=== PATIENT | female | born 1990 | race Caucasian/White ===

== ENCOUNTER 2016-10-10 03:20 | Inpatient (IN) | payer OTHER ==
[2016-10-10] MEDS ORDERED: BUTORPHANOL TARTRATE 1 MG/ML VIAL IVPUSH PRN (04:41)
[2016-10-10] MEDS ORDERED: DEXTROSE 5%-LACTATED RINGERS 1,000 ML IV SCH ×2 (04:45→22:30)
--- NOTE | 2016-10-10 04:45 | PN ---
Progress Note (short form) - Note Progress Note: cx 2 cm 80 vx -3 mi, fhr cat 1, contraction 2 min
[2016-10-10 05:15] VITALS: BMI 30.9
[2016-10-10 05:16] LABS: BASOPHIL 0.1 % (0-2.0); EOSINOPHIL 1.3 % (0-4.5); MCH 24.8 pg (25.7-33.7); MEAN CELL VOLUME 77.6 fl (80-96); MEAN PLT VOLUME 9.4 fl (7.5-11.1); NEUTROPHILS 74.3 % (42.8-82.8); PLATELET COUNT 218 K/MM3 (134-434); WHITE BLOOD COUNT 12.8 K/mm3 (4.0-10.0)
[2016-10-10 05:27] LABS: INR 0.88 (0.82-1.09); PROTHROMBIN TIME (PATIENT) 9.6 SEC (9.98-11.88)
[2016-10-10 05:30] LABS: ACTIVATED PTT 26.4 SECONDS (26.9-34.4)
[2016-10-10 05:34] LABS: CALCIUM 8.4 mg/dL (8.5-10.1); COCKROFT - GAULT 201.875; CREATININE 0.6 mg/dL (0.55-1.02)
[2016-10-10 06:46] LABS: HIV 1 & 2 AB NEGATIVE; HIV 1 AGp24 NEGATIVE
[2016-10-10] MEDS: ELECTROLYTE-148 SOLN 1,000 ML IV SCH ×2 (07:00→12:00)
[2016-10-10] MEDS ORDERED: FENTANYL/BUPIVACAINE/NS/PF - PCEA - 50 ML DISP.SYRIN EP SCH (07:30)
[2016-10-10] MEDS ORDERED: TUBERCULIN PPD 5 TU/0.1ML SYRINGE (IN PATIENT USE ONLY) ID ONE (09:00)
[2016-10-10] MEDS: PRENATAL VITAMINS W/ FOLIC ACID TABLET (FP) PO SCH (10:03)
--- NOTE | 2016-10-10 10:20 | HP ---
Past Medical History - Primary Care Physician PCP:: Joao Soto - Admission Chief Complaint: prregnancy 41.1 weeks, labor History of Present Illness: 26 yo f g 4 [id number] edc by sono 09/30/16, care at [facility]. c/o contraction, cx 2 cm, 80 vx -3 mi, fhr cat 1, contraction q 2 min History Source: Patient Limitations to Obtaining History: No Limitations - Past Medical History ...: 1 ...Para: 0 ...Term: 0 ...: 0 ...Spon : 0 ...Induced : 0 ...Multiple Gestation: 0 ...LMP: 12/25/15 ... Weeks Gestation by Dates: 41.3 ...EDC by Dates: 09/30/16 ...EDC by Sono: 09/30/16 - Past Surgical History Past Surgical History: Yes: Appendectomy Hx Myomectomy: No Hx Transabdominal Cerclage: No - Smoking History Smoking history: Never smoked Have you smoked in the past 12 months: No - Alcohol/Substance Use Hx Alcohol Use: No History of Substance Use: reports: None - Social History Usual Living Arrangement: Yes: With Spouse History of Recent Travel: No Home Medications - Allergies Allergies/Adverse Reactions: Allergies Allergy/AdvReac Type Severity Reaction Status Date / Time No Known Allergies Allergy Verified 10/10/16 05:17 - Home Medications Home Medications: Ambulatory Orders Pnv with Ca,No.72/Iron/FA [ Plus Tablet] 1 tab PO DAILY 10/04/16 Review of Systems - Review of Systems Constitutional: reports: No Symptoms Eyes: reports: No Symptoms HENT: reports: No Symptoms Neck: reports: No Symptoms Cardiovascular: reports: No Symptoms Respiratory: reports: No Symptoms Gastrointestinal: reports: No Symptoms Genitourinary: reports: No Symptoms Breasts: reports: No Symptoms Reported Musculoskeletal: reports: No Symptoms Integumentary: reports: No Symptoms Neurological: reports: No Symptoms Endocrine: reports: No Symptoms Hematology/Lymphatic: reports: No Symptoms Psychiatric: reports: No Symptoms Physical Exam - Maternity Vital Signs: Vital Signs Temperature 97.8 F 10/10/16 06:00 Pulse Rate 89 10/10/16 09:50 Respiratory Rate 10/10/16 09:50 Blood Pressure 111/60 10/10/16 09:50 O2 Sat by Pulse Oximetry (%) 100 10/10/16 09:50 Constitutional: Yes: Well Nourished, No Distress, Calm Eyes: Yes: WNL, Conjunctiva Clear, EOM Intact HENT: Yes: WNL, Atraumatic, Normocephalic Neck: Yes: WNL, Supple, Trachea Midline Cardiovascular: Yes: WNL, Regular Rate and Rhythm Breast(s): Yes: WNL - Abdominal Exam/OB Fundal Height: 40 Number of Fetuses: Single Presentation: Vertex Contractions: Yes Regularity: Regular Intensity: Mod/Strong Monitor Mode: External Heart Rate Location: [facility] Category: I Accelerations: Uniform Decelerations: None - Vaginal Exam/OB Vaginal Bleediing: No Speculum Exam: No Dilatation (cm): 2 cm Effacement (%): 80 Amniotic Membrane Status: Intact Presentation: Vertex/Position Station: -3 - Physical Exam Musculoskeletal: Yes: WNL Edema: Yes Edema: LLE: 1+, RLE: 1+ Deep Tendon Reflex Grade: Normal +2 - Labs Lab Results: CBC, BMP 10/10/16 04:50 10/10/16 04:50 Hemorrhage Risk Assessment - Risk Factors Risk Score: 0 Risk Level: Low Risk Problem List - Problems (1) with 41 completed weeks gestation Code(s): Z3A.41 - 41 WEEKS GESTATION OF (2) Labor established Code(s): RDO5961 - Assessment/Plan admit heart monitoring, LGA baby, c/s rba discussed , wants trial of vaginal delivery, shoulder dystocia discussed
[2016-10-10] MEDS: ONDANSETRON 4 MG/2 ML VIAL IVPB ONE (14:15)
--- NOTE | 2016-10-10 21:33 | PN ---
Progress Note (short form) - Note Progress Note: cx full 100 vx -2 arom, mec af , fhr cat 1 contraction q2 min , if no descent after ROM advised c/s Problem List - Problems (1) with 41 completed weeks gestation Code(s): Z3A.41 - 41 WEEKS GESTATION OF (2) Labor established Code(s): KYQ6486 -
--- NOTE | 2016-10-10 22:13 | PN ---
Progress Note (short form) - Note Progress Note: cx full vx op, -2 no descent with pushing , advised c/sfor contracted pelvis, LGA baby Problem List - Problems (1) with 41 completed weeks gestation Code(s): Z3A.41 - 41 WEEKS GESTATION OF (2) Labor established Code(s): VWW6562 -
[2016-10-10] MEDS ORDERED: CITRIC ACID/SODIUM CITRATE 30 ML UNIT-DOSE CUP PO ONE (22:16)
[2016-10-10] MEDS ORDERED: BENZOCAINE 28 GM HEMORRHOIDAL OINTMENT PR PRN (22:17)
[2016-10-10] MEDS ORDERED: IBUPROFEN 800 MG/8 ML IJ IVPB PRN (22:17)
[2016-10-10] MEDS ORDERED: BENZOCAINE 20% 57 GM BOTTLE TP PRN (22:17)
[2016-10-10] MEDS ORDERED: WITCH HAZEL 50% (TUCKS) 40 PAD/JAR PAD TP PRN (22:17)
[2016-10-10] MEDS ORDERED: diphenhydrAMINE HCL 25 MG CAPSULE (FP) PO PRN (22:17)
[2016-10-10] MEDS ORDERED: METHYLERGONOVINE MALEATE 0.2 MG/1 ML AMP IM PRN (22:17)
[2016-10-10] MEDS ORDERED: OXYTOCIN 20 UNITS in 0.9% NS 1,000 ML IV SCH (22:30)
[2016-10-10 23:26] LABS: ARTERIAL BLD GAS O2 SATURATION 8.9 % (90-98.9); ARTERIAL BLOOD GAS BASE EXCESS -2.1 meq/l (-2-2); ARTERIAL BLOOD GAS pH 7.32 (7.35-7.45)
[2016-10-10 23:29] LABS: VENOUS BLOOD GAS HCO3 23.8 meq/L (19-25); VENOUS PH 7.38 (7.32-7.42)
[2016-10-10 23:30] LABS: LPM/O2% 21%; PT. ON O2? NO; TYPE OF O2 ROOM AIR
[2016-10-10 23:31] LABS: ARTERIAL BLOOD GAS PO2 10.4 mmHg (80-100)
[2016-10-10] MEDS ORDERED: ONDANSETRON 4 MG/2 ML VIAL IVPB PRN (23:56)
[2016-10-11] MEDS ORDERED: CEFAZOLIN 1 GM/D5W 50 ML IVPB SCH (02:00)
[2016-10-11] MEDS ORDERED: CEFAZOLIN (PRE-DOCKED) 50 ML IVPB ONE ×2 (05:13→12:50)
[2016-10-11] MEDS: CEFAZOLIN 1 GM/D5W 50 ML IVPB SCH ×2 (05:17→13:04)
[2016-10-11 07:57] LABS: BASOPHIL 0.1 % (0-2.0); EOSINOPHIL 0.2 % (0-4.5); MCH 25.2 pg (25.7-33.7); MCHC 32.2 g/dl (32.0-36.0); MEAN CELL VOLUME 78.1 fl (80-96); MEAN PLT VOLUME 8.8 fl (7.5-11.1); NEUTROPHILS 83.4 % (42.8-82.8); PLATELET COUNT 168 K/MM3 (134-434); RDW 16.8 % (11.6-15.6)
--- NOTE | 2016-10-11 08:14 | PN ---
Progress Note (short form) - Note Progress Note: pod 1 doing well, no c/o CBC, BMP 10/10/16 04:50 abdomen soft, no distension, no cva , incision dry no excess vaginal bleeding plan d/c Belcher, ambulate pain management Problem List - Problems (1) with 41 completed weeks gestation Code(s): Z3A.41 - 41 WEEKS GESTATION OF (2) Labor established Code(s): FJS9853 -
[2016-10-11] MEDS: PRENATAL VITAMINS W/ FOLIC ACID TABLET (FP) PO SCH (09:40)
[2016-10-11] MEDS ORDERED: ONDANSETRON 4 MG/2 ML VIAL IVPB PRN (14:54)
[2016-10-11] MEDS: ONDANSETRON 4 MG/2 ML VIAL IVPB ONE (14:58)
[2016-10-11] MEDS: IBUPROFEN 600 MG TABLET (FP) PO PRN (21:01)
[2016-10-11] MEDS: SIMETHICONE 80 MG TAB.CHEW (FP) PO PRN (21:01)
[2016-10-11] MEDS: ACETAMINOPHEN 325 MG TABLET (FP) PO PRN (21:04)
[2016-10-11] MEDS ORDERED: BISACODYL 10 MG SUPP.RECT RC PRN (22:17)
--- NOTE | 2016-10-12 05:40 | PN ---
Post Progress Note - Subjective Subjective: 26 yo Para 1, status post primary , seen and evaluated. She c/o mild incision pain. Type of Delivery: Primary C/S Vital Signs: Vital Signs Temperature 98.4 F 10/11/16 21:19 Pulse Rate 98 H 10/11/16 21:19 Respiratory Rate 18 10/11/16 22:00 Blood Pressure 121/76 10/11/16 21:19 O2 Sat by Pulse Oximetry (%) 100 10/11/16 00:30 Breast Exam: Yes: Soft Uterus: Yes: Fundus Firm Incision: Yes: Dressing dry and intact Abdomen/GI: Yes: Abdomen soft, Tolerating PO Lochia: Yes: Rubra Lochia, amount: Small Extremities: Yes: Calves non-tender Perineum: Yes: Intact Activity: Ambulating - Labs Labs: CBC WBC 18.0 K/mm3 (4.0-10.0) H D 10/11/16 07:00 RBC 3.11 M/mm3 (3.60-5.2) L D 10/11/16 07:00 Hgb 7.8 GM/dL (10.7-15.3) L D 10/11/16 07:00 Hct 24.3 % (32.4-45.2) L D 10/11/16 07:00 MCV 78.1 fl (80-96) L 10/11/16 07:00 MCHC 32.2 g/dl (32.0-36.0) 10/11/16 07:00 RDW 16.8 % (11.6-15.6) H 10/11/16 07:00 Plt Count 168 K/MM3 (134-434) D 10/11/16 07:00 MPV 8.8 fl (7.5-11.1) 10/11/16 07:00 Neutrophils % 83.4 % (42.8-82.8) H 10/11/16 07:00 Lymphocytes % 9.7 % (8-40) D 10/11/16 07:00 Monocytes % 6.6 % (3.8-10.2) 10/11/16 07:00 Eosinophils % 0.2 % (0-4.5) D 10/11/16 07:00 Basophils % 0.1 % (0-2.0) 10/11/16 07:00 Problem List - Problems (1) Status post primary low transverse section Code(s): Z98.891 - HISTORY OF UTERINE SCAR FROM PREVIOUS SURGERY Assessment/Plan Status post Stable Continue Post op care
[2016-10-12] MEDS: IBUPROFEN 600 MG TABLET (FP) PO PRN (07:53)
[2016-10-12] MEDS: SIMETHICONE 80 MG TAB.CHEW (FP) PO PRN ×3 (07:53→20:24)
[2016-10-12] MEDS: ACETAMINOPHEN 325 MG TABLET (FP) PO PRN ×3 (07:53→20:24)
[2016-10-12] MEDS ORDERED: DIPHTH,PERTUSS(ACELL),TET 0.5 ML DISP.SYRIN IM ONE ×2 (10:00→13:45)
[2016-10-12] MEDS: PRENATAL VITAMINS W/ FOLIC ACID TABLET (FP) PO SCH (10:44)
[2016-10-12] MEDS: oxyCODONE HCL 5 MG TABLET PO PRN ×2 (15:11→20:26)
[2016-10-12] MEDS: SENNOSIDES/DOCUSATE COMBO (SENNA PLUS) TABLET (UD) PO PRN (22:02)
[2016-10-13] MEDS: ACETAMINOPHEN 325 MG TABLET (FP) PO PRN ×3 (05:02→17:21)
[2016-10-13] MEDS: SIMETHICONE 80 MG TAB.CHEW (FP) PO PRN ×3 (05:02→17:21)
[2016-10-13] MEDS: oxyCODONE HCL 5 MG TABLET PO PRN (05:03)
[2016-10-13 07:46] LABS: BASOPHIL 0.1 % (0-2.0); EOSINOPHIL 2.1 % (0-4.5); MCH 25.1 pg (25.7-33.7); MCHC 32.5 g/dl (32.0-36.0); MEAN CELL VOLUME 77.4 fl (80-96); MEAN PLT VOLUME 8.3 fl (7.5-11.1); NEUTROPHILS 79.9 % (42.8-82.8); PLATELET COUNT 197 K/MM3 (134-434); RDW 17.1 % (11.6-15.6); WHITE BLOOD COUNT 12.6 K/mm3 (4.0-10.0)
--- NOTE | 2016-10-13 08:36 | PN ---
Post Progress Note - Subjective Subjective: c/o dizziness no c/o pain Post Day: 3 Type of Delivery: Primary C/S Vital Signs: Vital Signs Temperature 98 F 10/13/16 07:32 Pulse Rate 91 H 10/13/16 07:32 Respiratory Rate 18 10/13/16 07:32 Blood Pressure 123/69 10/13/16 07:32 O2 Sat by Pulse Oximetry (%) 100 10/11/16 00:30 Breast Exam: Yes: Soft. No: Engorged Uterus: Yes: Fundus Firm, Fundus below umbilicus Incision: Yes: Makeda intact. No: Redness, Oozing Abdomen/GI: Yes: Abdomen soft, Passing flatus, Tolerating PO (diet ). No: Abdominal Distention, Tender Lochia: Yes: Rubra Lochia, amount: Moderate Extremities: Yes: Calves non-tender, Edema (2+/2+) Perineum: Yes: Intact Activity: Ambulating - Labs Labs: CBC WBC 12.6 K/mm3 (4.0-10.0) H 10/13/16 06:10 RBC 3.12 M/mm3 (3.60-5.2) L 10/13/16 06:10 Hgb 7.8 GM/dL (10.7-15.3) L 10/13/16 06:10 Hct 24.1 % (32.4-45.2) L 10/13/16 06:10 MCV 77.4 fl (80-96) L 10/13/16 06:10 MCHC 32.5 g/dl (32.0-36.0) 10/13/16 06:10 RDW 17.1 % (11.6-15.6) H 10/13/16 06:10 Plt Count 197 K/MM3 (134-434) 10/13/16 06:10 MPV 8.3 fl (7.5-11.1) 10/13/16 06:10 Neutrophils % 79.9 % (42.8-82.8) 10/13/16 06:10 Lymphocytes % 11.2 % (8-40) 10/13/16 06:10 Monocytes % 6.7 % (3.8-10.2) 10/13/16 06:10 Eosinophils % 2.1 % (0-4.5) D 10/13/16 06:10 Basophils % 0.1 % (0-2.0) 10/13/16 06:10 Assessment/Plan severe anemia, stable since preop cbc Plan discuss with Dr Soto if blood transfusion is to be offered pt was told r/b/a ,of transfusion . dr Soto discussed with patient, he decided there is no need to transfuse, on the basis of stable Hgb/hct
[2016-10-13] MEDS: FERROUS SO4 325 MG TABLET (FP) PO SCH ×2 (10:21→21:59)
[2016-10-13] MEDS: PRENATAL VITAMINS W/ FOLIC ACID TABLET (FP) PO SCH (10:21)
[2016-10-13] MEDS: IBUPROFEN 600 MG TABLET (FP) PO PRN ×2 (12:52→17:22)
[2016-10-13] MEDS: SENNOSIDES/DOCUSATE COMBO (SENNA PLUS) TABLET (UD) PO PRN (21:59)
--- NOTE | 2016-10-14 07:31 | PN ---
Post Progress Note Type of Delivery: Primary C/S Vital Signs: Vital Signs Temperature 98.0 F 10/13/16 20:58 Pulse Rate 84 10/13/16 20:58 Respiratory Rate 20 10/13/16 20:58 Blood Pressure 129/77 10/13/16 20:58 O2 Sat by Pulse Oximetry (%) 100 10/11/16 00:30 Breast Exam: Yes: Soft Uterus: Yes: Fundus Firm Incision: Yes: Makeda intact Abdomen/GI: Yes: Abdomen soft Lochia: Yes: Rubra Lochia, amount: Small Extremities: Yes: Calves non-tender Perineum: Yes: Intact Activity: Ambulating - Labs Labs: CBC WBC 12.6 K/mm3 (4.0-10.0) H 10/13/16 06:10 RBC 3.12 M/mm3 (3.60-5.2) L 10/13/16 06:10 Hgb 7.8 GM/dL (10.7-15.3) L 10/13/16 06:10 Hct 24.1 % (32.4-45.2) L 10/13/16 06:10 MCV 77.4 fl (80-96) L 10/13/16 06:10 MCHC 32.5 g/dl (32.0-36.0) 10/13/16 06:10 RDW 17.1 % (11.6-15.6) H 10/13/16 06:10 Plt Count 197 K/MM3 (134-434) 10/13/16 06:10 MPV 8.3 fl (7.5-11.1) 10/13/16 06:10 Neutrophils % 79.9 % (42.8-82.8) 10/13/16 06:10 Lymphocytes % 11.2 % (8-40) 10/13/16 06:10 Monocytes % 6.7 % (3.8-10.2) 10/13/16 06:10 Eosinophils % 2.1 % (0-4.5) D 10/13/16 06:10 Basophils % 0.1 % (0-2.0) 10/13/16 06:10 Assessment/Plan doing well h/h stable no dizziness no bleeding reg diet
[2016-10-14 08:30] VITALS: BP 109/85; PULSE 94; TEMP 98.3
[2016-10-14] MEDS: FERROUS SO4 325 MG TABLET (FP) PO SCH (10:47)
[2016-10-14] MEDS: PRENATAL VITAMINS W/ FOLIC ACID TABLET (FP) PO SCH (10:47)
[2016-10-14] MEDS: SIMETHICONE 80 MG TAB.CHEW (FP) PO PRN (10:50)
[2016-10-14] MEDS: ACETAMINOPHEN 325 MG TABLET (FP) PO PRN (10:50)
[2016-10-14] MEDS: IBUPROFEN 600 MG TABLET (FP) PO PRN (10:51)
[2016-10-14] MEDS ORDERED: oxyCODONE HCL 5 MG TABLET ONE (10:55)
[2016-10-14] MEDS: oxyCODONE HCL 5 MG TABLET PO PRN (10:55)
--- NOTE | 2016-10-15 14:45 | PATH ---
Surgical Pathology Report Patient Name: DEANDRA MINOR Med. Rec. 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 Specimen(s) Received PLACENTA Clinical History , 41.3 weeks gestation, LGA Primary c/section Final Diagnosis PLACENTA, DELIVERY: FOCALLY DISRUPTED THIRD TRIMESTER PLACENTA WITH MILD INCREASE IN PREVILLOUS, PERIVILLOUS, AND PRECHORIONIC FIBRIN DEPOSITION, THREE VESSEL UMBILICAL CORD, AND PLACENTAL MEMBRANES WITH MECONIUM HISTIOCYTOSIS AND FOCAL AMNION HYPERPLASIA. Electronically Signed Ruddy Juarez M.D. Gross Description The specimen is received fresh, labeled "placenta" and is a 566 gram, 19.5 x 17.5 x 2.4 cm placenta with attached membranes and umbilical cord. The attached membranes are flores-green, meconium stained, translucent with focal opacities and insert marginally. The umbilical cord measures 24 cm in length and averages 1.1 cm in diameter. The cord inserts eccentrically, 2 cm to the nearest margin. No true knots or strictures are identified. Cut surface of the umbilical cord reveals 3 vessels. The surface is white-green, meconium stained with fibrin deposition and appropriate caliber vessels. The maternal surface is red-brown with focal defects. Sectioning reveals red-brown, spongy parenchyma. No focal lesions are identified. Program Strategist sections are submitted in three cassettes as follows: 1- membrane rolls and umbilical cord; 2-3- full thickness sections of placenta. 10/14/[address] [facility]
--- NOTE | 2016-10-21 15:16 | DS ---
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 Vital Signs: Vital Signs Temperature 98.3 F 10/14/16 08:27 Pulse Rate 94 H 10/14/16 08:27 Respiratory Rate 20 10/14/16 08:27 Blood Pressure 109/85 10/14/16 08:27 O2 Sat by Pulse Oximetry (%) 100 10/11/16 00:30 Constitutional: Yes: Well Nourished, No Distress, Calm Eyes: Yes: WNL, Conjunctiva Clear, EOM Intact HENT: Yes: WNL, Atraumatic, Normocephalic Neck: Yes: WNL, Supple, Trachea Midline Cardiovascular: Yes: WNL, Regular Rate and Rhythm Respiratory: Yes: WNL, Regular, CTA Bilaterally Gastrointestinal: Yes: WNL ...Rectal Exam: Yes: WNL Renal/: Yes: WNL ....Post : Yes: Uterus firm, Uterus non-tender, Slight lochia rubra Breast(s): Yes: WNL Musculoskeletal: Yes: WNL Extremities: Yes: WNL Edema: LLE: Trace, RLE: Trace Integumentary: Yes: WNL Wound/Incision: Yes: Clean/Dry, Well Approximated, Makeda Intact Neurological: Yes: WNL, Alert, Oriented ...Motor Strength: WNL Psychiatric: Yes: WNL, Alert, Oriented Labs: CBC, BMP 10/13/16 06:10 10/10/16 04:50 Delivery - Delivery Section: Primary (no complication), Low Flap Transverse Type of Anesthesia: Epidural Episiotomy/Laceration: None EBL (cc): 700 Delivery, Single - Stages of Labor Date 1st Stage Initiatied: 10/10/16 Time 1st Stage Initiated: 00:00 Date 2nd Stage Initiated: 10/10/16 Time 2nd Stage Initiated: 21:18 Date of Delivery: 10/10/16 Time of Delivery: 23:00 Time Placenta Delivered: 23:01 Placenta: Yes: Expressed - Condition of Infant Density Control Puncher/Telecom Billing Analyst Present: No Infant Gender: Male Weight: 9 lb Position: OP Total Hours ROM (Hrs/Mins): 2HRS- 47 MINS - 1 Minute Total Score: 9 5 Minutes Total Score: 9 - [place] Feeding Plan Initial Plan: Exclusive throughout hospitalization Benefits of Exclusively reinforced: Yes Discharge Summary Reason For Visit: LABOR ADMIT Procedures: Principal: primary lst c/s Condition: Good - Instructions Diet, Activity, Other Instructions: regular diet, follow up hrh 1 week, cont iron vit Referrals: Joao Soto MD [Staff Physician] - Disposition: HOME - Home Medications Comprehensive Discharge Medication List: Ambulatory Orders Pnv with Ca,No.72/Iron/FA [ Plus Tablet] 1 tab PO DAILY 10/04/16 Ferrous Sulfate [Feosol] 325 mg PO BID #90 tablet 10/13/16 Ibuprofen [Motrin -] 600 mg PO QID #28 tablet 10/13/16
--- NOTE | 2016-10-21 15:44 | OP ---
DATE OF OPERATION: 10/10/2016 PREOPERATIVE DIAGNOSES: , 41-plus weeks gestation; labor; failure to dilate; large for gestational age. POSTOPERATIVE DIAGNOSES: , 41-plus weeks gestation; labor; failure to dilate; large for gestational age. PROCEDURE: Primary low-segment transverse section. SURGEON: Joao Soto MD CAN FEEDER: KEILA Iglesias ANESTHESIA: Epidural. ESTIMATED BLOOD LOSS: 500 mL. DESCRIPTION: Patient was taken to operating room. Adequate spinal anesthesia. Abdomen and perineum was prepped and draped. Pfannenstiel abdominal skin incision was made. Abdominal wall was cut layer by layer until peritoneum was exposed and incised. Upon entering abdominal cavity, lower uterine segment was identified and uterovesical fold of peritoneum established, bladder was pushed down. Then with the lower blade of the Mireya retractor in the pelvis, a low transverse uterine incision was made, incision extended laterally. Amniotic sac was entered. Head was delivered. Nasopharynx was suctioned. Live baby was delivered without any difficulty. Placenta was delivered manually. Uterine cavity was cleaned of all remaining tissue. Uterine incision was closed in 2 layers, 1st layer with 0 Biosyn continuous suture, and the 2nd layer with 0 Biosyn imbricating the 1st layer. Bladder flap was closed with 0 Biosyn continuous suture. Both tubes and ovaries were checked, were normal; no active bleeding was seen. All the lap and sponge count, instrument count were correct. Then peritoneum was closed with 0 Biosyn continuous suture. Muscles were brought together with interrupted suture of 0 Biosyn. Fascia was closed with 0 Biosyn continuous suture, subcutaneous fat with interrupted suture of 0 Biosyn, and the skin was closed with luis a. Patient tolerated procedure well, left the OR in good condition. Daniela [id number]
== END 2016-10-14 12:00 | disposition home or self-care (01) | DRG 540 ==
LOC: JDEL 03:20 → JLDR 03:21 → J3W 10-11 01:30
PROVIDERS: ADMIT Obstetrics & Gynecology; ATTEND Obstetrics & Gynecology
PROC: 10D00Z1 Extraction of Products of Conception, Low, Open Approach (ICD-10-PCS; principal; 2016-10-10)
DX: O48.0 Post-term pregnancy (principal); Z3A.41 41 weeks gestation of pregnancy; O36.63X0 Maternal care for excessive fetal growth, third trimester, not applicable or unspecified; O62.0 Primary inadequate contractions; O99.013 Anemia complicating pregnancy, third trimester; Z37.0 Single live birth
CPT/HCPCS: 36415; 36600; 80048; 82803; 85025; 85610; 85730; 86593; 86850; 86900; 86901; 87389; 88307-TC; 90715

== ENCOUNTER 2017-05-29 23:55 | Emergency (ER) | payer OTHER ==
[2017-05-30 01:15] VITALS: BP 120/79; PULSE 79; TEMP 98; BMI 23.9
--- NOTE | 2017-05-30 01:27 | PDOC ---
Attending Attestation - HPI HPI: 05/30/17 01:55 The patient is a 26F from [facility] with PMHx of , who presents to the ED today for chest pain. Patient states that while laying down in bed she began to experience a pressure-like chest pain and felt heaviness down her left arm. She states she had trouble breathing and felt a strange sensation to her left side that disappeared as quickly as it began. She states that her symptoms lasted for less than 5 minutes. Patient is currently calm and not in any emotional distress. Denies nausea, vomiting, headache, chest pain, SOB, or dizziness. Allergies: NKA - Physicial Exam PE: 05/30/17 01:55 GENERAL: Well developed, well nourished. Awake and alert. No acute distress. HEENT: Normocephalic, atraumatic. PERRLA, EOMI. No conjunctival pallor. Sclera are non- icteric. Moist mucous membranes. Oropharynx is clear. NECK: Supple. Full ROM. No JVD. Carotid pulses 2+ and symmetric, without bruits. No thyromegaly. No lymphadenopathy. CARDIOVASCULAR: Regular rate and rhythm. No murmurs, rubs, or gallops. Distal pulses are 2+ and symmetric. PULMONARY: No evidence of respiratory distress. Lungs clear to auscultation bilaterally. No wheezing, rales or rhonchi. ABDOMINAL: Soft. Non-tender. Non-distended. No rebound or guarding. No organomegaly. Normoactive bowel sounds. MUSCULOSKELETAL Normal range of motion at all joints. No bony deformities or tenderness. No CVA tenderness. EXTREMITIES: No cyanosis. No clubbing. No edema. No calf tenderness. SKIN: Warm and dry. Normal capillary refill. No rashes. No jaundice. NEUROLOGICAL: Alert, awake, appropriate. NIHSS - 0 Cranial nerves 2-12 intact. No deficits to light touch and temperature in face, upper extremities and lower extremities. No motor deficits in the in face, upper extremities and lower extremities. Normoreflexic in the upper and lower extremities. Strength 5/5 in all extremities. No pronator drift. No slurred speech. No facial droop. Normal speech. Toes are down-going bilaterally. Gait is normal without ataxia. PSYCHIATRIC: Cooperative. Good eye contact. Appropriate mood and affect. EKG unremarkable. No slurred speech, no facial droop, no dizziness, no confusion, no weakness. NIHSS - 0. <SaraMachoKimmy - Last Filed: 05/30/17 01:55> - Resident Resident Name: Lenard Gomez - ED Attending Attestation I have performed the following: I have examined & evaluated the patient, The case was reviewed & discussed with the resident, I agree w/resident's findings & plan, Exceptions are as noted - Medical Decision Making 05/30/17 02:33 pt had no focal neuro deficits or chest pain upon arrival -ekg was nsr with no evidence of ischemia labs unremarkable <Becky Murrieta - Last Filed: 05/30/17 02:39> NIH Stroke Scale - Last Known Well Date/Time & Onset Date Last Known Well: 05/29/17 Time Last Known Well: 23:00 - Initial Evaluation Level of consciousness: Alert Ask patient the month and their age: Answers both correctly Ask patient to open & close eyes; make fist and let go: Obeys both correctly Best gaze (horizontal eye movement): Normal Visual field testing: No visual field loss Facial paresis (Show teeth/raise eyebrows/close eyes tight): Normal symmetrical movement Motor Function: Left Arm: Normal Motor Function: Right Arm: Normal (extends arm 90 (or 45) degrees for 10 seconds without drift Motor Function: Left Leg: Normal (extends leg 30 degrees for 5 seconds without drift) Motor Function: Right Leg: Normal (extends leg 30 degrees for 5 seconds without drift) Limb Ataxia: No ataxia Sensory(Use pinprick test arms,legs,trunk,face/side to side): Normal Best language (Describe picture, name items, read sentences): No Aphasia Dysarthria (read several words): Normal articulation Extinction and Inattention: No abnormality - Total Score NIH Stroke Scale Score: 0 <Becky Murrieta - Last Filed: 05/30/17 02:39>
--- NOTE | 2017-05-30 01:36 | PDOC ---
History of Present Illness - General Stated Complaint: CHEST PAIN Time Seen by Provider: 05/30/17 00:38 History Source: Patient, Spouse Exam Limitations: No Limitations - History of Present Illness Initial Comments: 05/30/17 01:25 The patient is a 26F with no PMH who presents to the ED today after experiencing an episode of chest pressure. The patient states that she was laying in bed watching TV when she felt a sudden onset chest pressure and felt like she was not able to take a deep breath. She also felt numbness in her entire L arm which radiated to her L neck. She states that this episode lasted for 5 minutes and she felt like she was going to pass out. She did not pass out and currently has no acute complaints. Past History - Past Medical History Allergies/Adverse Reactions: Allergies Allergy/AdvReac Type Severity Reaction Status Date / Time No Known Allergies Allergy Verified 10/10/16 05:17 Home Medications: Ambulatory Orders Pnv,Calcium 72/Iron/Folic Acid [ Plus Tablet] 1 tab PO DAILY 10/04/16 Ferrous Sulfate [Feosol] 325 mg PO BID #90 tablet 10/13/16 Ibuprofen [Motrin -] 600 mg PO QID #28 tablet 10/13/16 Asthma: No Cancer: No Cardiac Disorders: No Diabetes: No HTN: No Seizures: No Thyroid Disease: No - Suicide/Smoking/Psychosocial Hx Smoking History: Never smoked Have you smoked in the past 12 months: No Information on smoking cessation initiated: No Hx Alcohol Use: No Drug/Substance Use Hx: No Hx Substance Use Treatment: No Review of Systems - Review of Systems Able to Perform ROS?: Yes Comments:: 05/30/17 01:37 GENERAL/CONSTITUTIONAL: No fever or chills. No weakness. HEAD, EYES, EARS, NOSE AND THROAT: No change in vision. No ear pain or discharge. No sore throat. GASTROINTESTINAL: No nausea, vomiting, diarrhea, constipation, or abdominal pain. GENITOURINARY: No dysuria, frequency, hematuria, or change in urination. CARDIOVASCULAR: Positive for resolved chest pressure. No chest pain, palpitations, or lightheadedness. RESPIRATORY: Positive for resolved shortness of breath. No cough, wheezing, shortness of breath, or hemoptysis. MUSCULOSKELETAL: No joint or muscle swelling or pain. No neck or back pain. SKIN: No rash or lesions. NEUROLOGIC: Positive for resolved L arm numbness. No headache, numbness, tingling, weakness, loss of consciousness, or change in strength/sensation. ENDOCRINE: No increased thirst. No abnormal weight change. HEMATOLOGIC/LYMPHATIC: No anemia, easy bleeding, or history of blood clots. ALLERGIC/IMMUNOLOGIC: No hives or skin allergy. Is the patient limited Mexican proficient: No *Physical Exam - Vital Signs Last Vital Signs Temp Pulse Resp BP Pulse Ox 98.0 F 79 20 120/79 99 05/30/17 00:38 05/30/17 00:38 05/30/17 00:38 05/30/17 00:38 05/30/17 00:38 - Physical Exam Comments: 05/30/17 01:41 GENERAL: Well developed, well nourished. Awake and alert. No acute distress. HEENT: Normocephalic, atraumatic. Hearing grossly normal. Moist mucous membranes. PERRLA, EOMI. No conjunctival pallor. Sclera are non-icteric. Oropharynx is clear. NECK: Supple. Full ROM. No JVD. Carotid pulses 2+ and symmetric, without bruits. CARDIOVASCULAR: Regular rate and rhythm. No murmurs, rubs, or gallops. PULMONARY: No evidence of respiratory distress. Lungs clear to auscultation bilaterally. No wheezing, rales or rhonchi. ABDOMINAL: Soft. Non-tender. Non-distended. No rebound or guarding. No organomegaly. Normoactive bowel sounds. GENITOURINARY: No CVA tenderness bilaterally. MUSCULOSKELETAL: Normal range of motion at all joints. No bony deformities or tenderness. EXTREMITIES: No cyanosis. No clubbing. No edema. No calf tenderness. SKIN: Warm and dry. Normal capillary refill. No rashes. No jaundice. NEUROLOGICAL: Alert, awake, appropriate. Cranial nerves 2-12 intact. No deficits to light touch and temperature in face, upper extremities and lower extremities. No motor deficits in the in face, upper extremities and lower extremities. Finger to nose normal. Normal speech. Gait is normal without ataxia. PSYCHIATRIC: Cooperative. Good eye contact. Appropriate mood and affect. Heart Score/ECG Review #1 ECG reviewed & interpreted by me at: 01:42 General ECG Interpretation: Sinus Rhythm, Normal Rate, Normal Intervals, No acute ischemic changes Compared to previous ECG there are: Previous ECG unavail ED Treatment Course - LABORATORY CBC & Chemistry Diagram: 05/30/17 01:41 05/30/17 01:41 Medical Decision Making - Medical Decision Making 05/30/17 02:34 The patient is a 26F with no PMH who presents to the ED with complaints of resolved CP and SOB with L arm numbness. I will check basic labs as her exam is completely normal and all symptoms have resolved. Labs and EKG WNL. EKG shows NSR. Will d/c home with PCP f/u and good d/c instructions. *DC/Admit/Observation/Transfer Diagnosis at time of Disposition: Chest pain, atypical - Discharge Dispostion Disposition: HOME Condition at time of disposition: Stable Admit: No - Referrals - Patient Instructions Printed Discharge Instructions: DI for Atypical Chest Pain Additional Instructions: Please return to the ER if symptoms persist, worsen, or new symptoms arise. Please follow up with your primary care physician in 2-3 days. Please return to the ER if you have any signs or symptoms of chest pain, shortness of breath, uncontrollable fever, chills, nausea, vomiting, numbness, tingling, or weakness in any part of your body, changes in vision, or slurred speech. Print Language: SINGAPOREAN - Post Discharge Activity
[2017-05-30 01:52] LABS: BASO % 0.3 % (0-2.0); EOS % 2.4 % (0-4.5); HEMOGLOBIN 12.1 GM/dL (10.7-15.3); LYMPH % 30.3 % (8-40); MCH 24.2 pg (25.7-33.7); MCHC 31.8 g/dl (32.0-36.0); MEAN CELL VOLUME 75.9 fl (80-96); MEAN PLT VOLUME 8.7 fl (7.5-11.1); MONO % 9.1 % (3.8-10.2); NEUT % 57.9 % (42.8-82.8); PLATELET COUNT 289 K/MM3 (134-434); RDW 16.3 % (11.6-15.6); WHITE BLOOD COUNT 8.9 K/mm3 (4.0-10.0)
[2017-05-30 02:29] LABS: ANION GAP 10 (8-16); BILIRUBIN,TOTAL 0.5 mg/dL (0.2-1.0); BLOOD UREA NITROGEN 13 mg/dL (7-18); CALCIUM 9.4 mg/dL (8.5-10.1); CHLORIDE 105 mmol/L (98-107); CO2 25 mmol/L (21-32); CREATININE 0.6 mg/dL (0.55-1.02); GLUCOSE,RANDOM 97 mg/dL (74-106); POTASSIUM 3.9 mmol/L (3.5-5.1); SGOT/AST 11 U/L (15-37); SGPT/ALT 14 U/L (12-78); SODIUM 140 mmol/L (136-145); TOT PROT 7.4 g/dl (6.4-8.2)
[2017-05-30 02:30] LABS: ALK PHOS 89 U/L (45-117)
--- NOTE | 2017-05-30 12:22 | EKG ---
Test Reason : Blood Pressure : / mmHG Vent. Rate : 083 BPM Atrial Rate : 083 BPM P-R Int : 126 ms QRS Dur : 074 ms QT Int : 368 ms P-R-T Axes : 000 050 048 degrees QTc Int : 432 ms NORMAL SINUS RHYTHM NORMAL ECG NO PREVIOUS ECGS AVAILABLE Confirmed by CATE JIN MD ([id number]) on 05/30/2017 12:22:03 PM Referred By: Confirmed By:CATE JIN MD
== END 2017-05-30 03:11 | disposition home or self-care (01) ==
LOC: JER 23:55
DX: R07.9 Chest pain, unspecified (principal)
CPT/HCPCS: 36415; 80053; 84703; 85025; 93005; 93010; 99281-25

== ENCOUNTER 2018-06-26 02:09 | Emergency (ER) | payer OTHER ==
[2018-06-26 02:34] VITALS: BMI 26.6
[2018-06-26] MEDS ORDERED: SODIUM CHLORIDE 1,000 ML IV STA (02:38)
[2018-06-26] MEDS ORDERED: ACETAMINOPHEN 1000 MG/100 ML VIAL (NON FORMULARY) IVPB ONE (02:38)
[2018-06-26] MEDS ORDERED: ONDANSETRON 4 MG/2 ML VIAL IVPUSH ONE (02:39)
--- NOTE | 2018-06-26 02:54 | PDOC ---
History of Present Illness <Tisha Paul - Last Filed: 06/26/18 04:13> - General History Source: Patient Exam Limitations: No Limitations - History of Present Illness Initial Comments: 27 yo F w no sig pmh presents to the ER with epigastric abdominal pain, nausea, vomiting - NBNB, and watery diarrhea after eating salmon and cabbage salad for dinner. She reports that she ate dinner at 730 PM and then around 9 her abdomen started hurting and she couldn't stop vomiting. At first her vomitus was just what she ate. Then she drank some of her niko red pedialyte and started vomiting the pedialyte everywhere. She could not keep anything down so she came to the Er to be evaluated. She denies any fevers, chills, infections, chest pain, SOB, difficulty breathing , dysuria, frequency, or urgency. PCP: None Allergies: NKA, NKDA Social Hx: Denies smoking, drinking, or other substance usage PSH: Appendectomy, <Duglas Queen - Last Filed: 06/26/18 05:55> - General Chief Complaint: Nausea/Vomiting Stated Complaint: NAUSEA VOMITING Time Seen by Provider: 06/26/18 02:25 Past History <Tisha Paul - Last Filed: 06/26/18 04:13> - Past Medical History Asthma: No Cancer: No Cardiac Disorders: No Diabetes: No HTN: No Seizures: No Thyroid Disease: No - Suicide/Smoking/Psychosocial Hx Smoking History: Never smoked Have you smoked in the past 12 months: No Information on smoking cessation initiated: No Hx Alcohol Use: No Drug/Substance Use Hx: No Hx Substance Use Treatment: No <Duglas Queen - Last Filed: 06/26/18 05:55> - Past Medical History Allergies/Adverse Reactions: Allergies Allergy/AdvReac Type Severity Reaction Status Date / Time No Known Allergies Allergy Verified 06/26/18 02:35 Home Medications: Ambulatory Orders Pnv,Calcium 72/Iron/Folic Acid [ Plus Tablet] 1 tab PO DAILY 10/04/16 Ferrous Sulfate [Feosol] 325 mg PO BID #90 tablet 10/13/16 Ibuprofen [Motrin -] 600 mg PO QID #28 tablet 10/13/16 Review of Systems - Review of Systems Able to Perform ROS?: Yes Comments:: CONSTITUTIONAL: Absent: fever, no chills, no fatigue EYES: Absent: visual changes ENT: Absent: ear pain, no sore throat CARDIOVASCULAR: Absent: chest pain, no palpitations RESPIRATORY: Absent: cough, no SOB GI: Present: abdominal pain, nausea, vomiting, diarrhea Absent: no constipation GENITOURINARY: Absent: dysuria, no frequency, no hematuria MUSKULOSKELETAL: Absent: back pain, no arthralgia, no myalgia SKIN: Absent: rash NEURO: Absent: headache <Duglas Queen - Last Filed: 06/26/18 05:55> *Physical Exam - Vital Signs Last Vital Signs Temp Pulse Resp BP Pulse Ox 97.4 F L 82 16 111/70 99 06/26/18 02:09 06/26/18 02:09 06/26/18 02:09 06/26/18 02:09 06/26/18 02:09 <Tisha Paul - Last Filed: 06/26/18 04:13> - Vital Signs Last Vital Signs Temp Pulse Resp BP Pulse Ox 97.4 F L 82 16 111/70 99 06/26/18 02:09 06/26/18 02:09 06/26/18 02:09 06/26/18 02:09 06/26/18 02:09 - Physical Exam Comments: GENERAL: Well-appearing, well-nourished. No apparent distress. HEENT: Normocephalic, atraumatic. PERRL, EOM intact. CARDIOVASCULAR: Normal S1, S2. Regular rate and rhythm. PULMONARY: No evidence of respiratory distress. Lungs clear to auscultation bilaterally. No wheezing, rales or rhonchi. ABDOMEN: There is significant Epigastric TTP. positive barton sign. Abdomen is soft without guarding or rebound. Negative rovsig. EXTREMITIES: Normal ROM in all four extremities. No gross deformities. SKIN: Warm, pale, dry. No rash NEUROLOGICAL: No focal neurological deficits. <Duglas Queen - Last Filed: 06/26/18 05:55> Moderate Sedation - Procedure Monitoring Vital Signs: Procedure Monitoring Vital Signs Temperature 97.4 F L 06/26/18 02:09 Pulse Rate 82 06/26/18 02:09 Respiratory Rate 16 06/26/18 02:09 Blood Pressure 111/70 06/26/18 02:09 O2 Sat by Pulse Oximetry (%) 99 06/26/18 02:09 <PaulTisha - Last Filed: 06/26/18 04:13> - Procedure Monitoring Vital Signs: Procedure Monitoring Vital Signs Temperature 97.4 F L 06/26/18 02:09 Pulse Rate 82 06/26/18 02:09 Respiratory Rate 16 06/26/18 02:09 Blood Pressure 111/70 06/26/18 02:09 O2 Sat by Pulse Oximetry (%) 99 06/26/18 02:09 <Duglas Queen - Last Filed: 06/26/18 05:55> ED Treatment Course - LABORATORY CBC & Chemistry Diagram: 06/26/18 02:49 06/26/18 02:49 - ADDITIONAL ORDERS Additional order review: Laboratory Results 06/26/18 06/26/18 03:03 02:49 Sodium 140 Potassium 3.7 Chloride 108 H Carbon Dioxide 26 Anion Gap 6 L BUN 20 H Creatinine 0.8 Creat Clearance w eGFR > 60 Random Glucose 110 H Calcium 9.1 Total Bilirubin 1.0 AST 11 L ALT 15 Alkaline Phosphatase 88 Total Protein 8.3 H Albumin 4.6 Lipase 125 Urine Color Yellow Urine Appearance Slcloudy Urine pH 5.0 Ur Specific [place] 1.032 Urine Protein 2+ H Urine Glucose (UA) Negative Urine Ketones 1+ H Urine Blood Negative Urine Nitrite Negative Urine Bilirubin Negative Urine Urobilinogen Negative Ur Leukocyte Esterase Trace Urine WBC (Auto) 3 Urine RBC (Auto) 3 Ur Epithelial Cells Many Urine Bacteria Rare Urine Mucus Many 06/26/18 02:49 RBC 5.32 H MCV 84.6 MCHC 33.9 RDW 14.1 D MPV 8.9 Neutrophils % 89.2 H D Lymphocytes % 4.6 L D Monocytes % 5.7 Eosinophils % 0.5 Basophils % 0.0 - Medications Given in the ED: ED Medications Discontinued Medications Generic Name Dose Route Start Last Admin Trade Name Freq PRN Reason Stop Dose Admin Acetaminophen 1,000 mg 06/26/18 02:38 06/26/18 03:33 Ofirmev Injection - IVPB 06/26/18 02:39 1,000 mg ONCE ONE Administration Sodium Chloride 1,000 mls @ 1,000 mls/hr 06/26/18 02:38 06/26/18 03:32 Normal Saline - IV 06/26/18 03:37 1,000 mls/hr ASDIR STA Administration Ondansetron HCl 4 mg 06/26/18 02:39 06/26/18 03:33 Zofran Injection IVPUSH 06/26/18 02:40 4 mg ONCE ONE Administration <Tisha Paul - Last Filed: 06/26/18 04:13> - LABORATORY CBC & Chemistry Diagram: 06/26/18 02:49 06/26/18 02:49 - RADIOLOGY Radiology Studies Ordered: Category Date Time Status ABDOMEN US -LIMITED [US] Stat Ultrasound 06/26/18 02:40 Ordered <Duglas Queen - Last Filed: 06/26/18 05:55> Medical Decision Making - Medical Decision Making 27 yo F w no sig pmh presents to the ER with epigastric abdominal pain, nausea, vomiting - NBNB, and watery diarrhea after eating salmon and cabbage salad for dinner. She reports that she ate dinner at 730 PM and then around 9 her abdomen started hurting and she couldn't stop vomiting. At first her vomitus was just what she ate. Then she drank some of her niko red pedialyte and started vomiting the pedialyte everywhere. She could not keep anything down so she came to the Er to be evaluated. DDx IBNLT: food poisoning vs gastroenteritis, pancreatitis, cholecystitis, , dehydration. Plan: Labs, Urine, EKG, IV hydration, analgesia, zofran, re-assess. CBC shows leukocytosis with left shift likely secondary to gastroenteritis. Patient feels significantly better after analgesia and IV hydration. She requests discharge. HCG negative. Advising patient to follow up with PCP and potentially have outpatient RUQ US. <Duglas Queen - Last Filed: 06/26/18 05:55> *DC/Admit/Observation/Transfer - Discharge Dispostion Decision to Admit order: No <Tisha Paul - Last Filed: 06/26/18 04:13> - Discharge Dispostion Decision to Admit order: No <Duglas Queen - Last Filed: 06/26/18 05:55> Diagnosis at time of Disposition: Viral gastroenteritis - Discharge Dispostion Disposition: HOME Condition at time of disposition: Improved - Referrals Referrals: [facility] [place] [facility] [place] [Provider Group] - Patient Instructions Printed Discharge Instructions: DI for Viral Gastroenteritis -- Adult - Post Discharge Activity Forms/Work/School Notes: Back to School
--- NOTE | 2018-06-26 02:56 | PDOC ---
Attending Attestation - Resident Resident Name: Duglas Queen - ED Attending Attestation I have performed the following: I have examined & evaluated the patient, The case was reviewed & discussed with the resident, I agree w/resident's findings & plan - HPI HPI: 06/26/18 04:10 Pt has the same gastroenteritis that everyone in [place] has. - Physicial Exam PE: 06/26/18 04:11 Abd soft NT ND; no flank pain. No fever. Pt has normal exam - Medical Decision Making 06/26/18 04:11 Hydration; pt feels better. SHe states that she goes to school, and likely got sick there, though she ate salmon yesterday - unlikely cause of food poisoning. 06/26/18 04:19 Preg negative Heart Score/ECG Review - ECG Intrepretation Rhythm: Regular Rhythm - [place]: Normal - P and IN Delta Wave(s) Present: No WPW: No - QRS Poor R Wave Progression: No Q Wave Present: No - ST and T Early Repolarization: No Non Specific ST-T Wave changes: No Flattened T Waves: No Prolonged Q-T Interval: No - ECG Impressions Normal ECG: Yes Non-specific ST Elevation: No Ischemic Changes: No Bradycardia: No
[2018-06-26 03:01] LABS: EOS % 0.5 % (0-4.5); HEMOGLOBIN 15.3 GM/dL (10.7-15.3); LYMPH % 4.6 % (8-40); MCH 28.7 pg (25.7-33.7); MCHC 33.9 g/dl (32.0-36.0); MEAN CELL VOLUME 84.6 fl (80-96); MEAN PLT VOLUME 8.9 fl (7.5-11.1); MONO % 5.7 % (3.8-10.2); NEUT % 89.2 % (42.8-82.8); PLATELET COUNT 226 K/MM3 (134-434); RBC 5.32 M/mm3 (3.60-5.2); RDW 14.1 % (11.6-15.6); WHITE BLOOD COUNT 17.6 K/mm3 (4.0-10.0)
[2018-06-26] MEDS ORDERED: ACETAMINOPHEN INJECTION 100 ML IVPB ONE (03:17)
[2018-06-26] MEDS ORDERED: ONDANSETRON 4 MG/2 ML VIAL ONE (03:17)
[2018-06-26 03:26] LABS: URINE APPEARANCE SLCLOUDY; URINE BILIRUBIN NEGATIVE (<2.0 mg/dL); URINE COLOR YELLOW; URINE GLUCOSE (UA) NEGATIVE (NEGATIVE); URINE KETONE 1+ (NEGATIVE); URINE LEUK ESTERASE TRACE (NEGATIVE); URINE NITRITE NEGATIVE (NEGATIVE); URINE PROTEIN 2+ (NEGATIVE); URINE UROBILINOGEN NEGATIVE mg/dL (0.2-1.0)
[2018-06-26 03:27] LABS: ALBUMIN 4.6 g/dl (3.4-5.0); ALK PHOS 88 U/L (45-117); ANION GAP 6 MMOL/L (8-16); BLOOD UREA NITROGEN 20 mg/dL (7-18); CALCIUM 9.1 mg/dL (8.5-10.1); CHLORIDE 108 mmol/L (98-107); CO2 26 mmol/L (21-32); CREATININE 0.8 mg/dL (0.55-1.3); GLUCOSE,RANDOM 110 mg/dL (74-106); LIPASE 125 U/L (73-393); POTASSIUM 3.7 mmol/L (3.5-5.1); SGOT/AST 11 U/L (15-37); SGPT/ALT 15 U/L (13-61); SODIUM 140 mmol/L (136-145); TOT PROT 8.3 g/dl (6.4-8.2)
[2018-06-26 03:39] LABS: EPI CELLS MANY /HPF (FEW); URINE BACTERIA RARE /hpf (NONE SEEN); URINE MUCUS MANY
[2018-06-26 06:20] VITALS: BP 113/63; PULSE 74; TEMP 98.2
[2018-06-26 07:44] LABS: ANISOCYTOSIS 1+; MACROCYTOSIS 0; PLATELET ESTIMATE NORMAL
--- NOTE | 2018-06-26 09:50 | EKG ---
Test Reason : Blood Pressure : / mmHG Vent. Rate : 086 BPM Atrial Rate : 086 BPM P-R Int : 134 ms QRS Dur : 074 ms QT Int : 334 ms P-R-T Axes : 031 048 032 degrees QTc Int : 399 ms NORMAL SINUS RHYTHM NORMAL ECG WHEN COMPARED WITH ECG OF 30-MAY-2017 00:01, NO SIGNIFICANT CHANGE WAS FOUND Confirmed by CATE JIN MD ([id number]) on 06/26/2018 9:49:50 AM Referred By: Confirmed By:CATE JIN MD
== END 2018-06-26 04:35 | disposition home or self-care (01) ==
LOC: JER 02:09
PROC: 3E0337Z Introduction of Electrolytic and Water Balance Substance into Peripheral Vein, Percutaneous Approach (ICD-10-PCS; principal; 2018-06-26)
PROC: 3E033NZ Introduction of Analgesics, Hypnotics, Sedatives into Peripheral Vein, Percutaneous Approach (ICD-10-PCS; 2018-06-26)
PROC: 3E033GC Introduction of Other Therapeutic Substance into Peripheral Vein, Percutaneous Approach (ICD-10-PCS; 2018-06-26)
DX: A08.4 Viral intestinal infection, unspecified (principal); B97.89 Other viral agents as the cause of diseases classified elsewhere
CPT/HCPCS: 36415; 80053; 81003; 81015; 83690; 84703; 85025; 93005; 93010; 96361; 96374; 96375; 99282-25; J0131; J7030

== ENCOUNTER 2019-05-28 18:21 | Emergency (ER) | payer BC, OTHER ==
--- NOTE | 2019-05-28 18:42 | PDOC ---
Rapid Medical Evaluation Medical Evaluation: Allergies Allergy/AdvReac Type Severity Reaction Status Date / Time No Known Allergies Allergy Verified 06/26/18 02:35 I have performed a brief in-person evaluation of this patient. The patient presents with a chief complaint of: is 5 weeks and is c/o vomiting x 5 days and diarrhea x 2 days; denies fever, vag bleeding; is pending her first visit Pertinent physical exam findings: In NAD I have ordered the following: Labs, IVF, zofran The patient will proceed to the ED for further evaluation. 05/28/19 18:40
[2019-05-28] MEDS ORDERED: SODIUM CHLORIDE 1,000 ML IV STA (18:43)
[2019-05-28] MEDS ORDERED: ONDANSETRON 4 MG/2 ML VIAL IVPUSH ONE (18:43)
[2019-05-28 18:44] VITALS: BMI 24.3
--- NOTE | 2019-05-28 20:45 | PDOC ---
Attending Attestation - Resident Resident Name: SeferinoCabrera - ED Attending Attestation I have performed the following: I have examined & evaluated the patient, The case was reviewed & discussed with the resident, I agree w/resident's findings & plan, Exceptions are as noted - HPI HPI: 05/28/19 20:45 28-year-old female presents for nausea and vomiting - Physicial Exam PE: 05/28/19 20:55 Well-nourished well-developed 28-year-old female states she is and has been having nausea and vomiting the past 2 weeks Head is normocephalic atraumatic Neck is supple Lungs are clear to auscultation bilaterally CVS regular rate and rhythm S1-S2 Abdomen no rebound, no guarding or tenderness Skin warm and dry Extremities no edema Neuro alert and oriented x3 no gross focal neuro deficits - Medical Decision Making 05/28/19 20:46 28-year-old female presents with nausea and vomiting Differential includes hyperemesis gravidarum, cholecystitis, gastroenteritis 05/28/19 21:25 Past medical history 2 para 1 Past surgical history appendectomy 05/28/19 22:43 Patient receiving IV fluids CBC is unremarkable there is a slight leukocytosis at 11,000 which is not unexpected in Chemistries are unremarkable Beta-hCG is 63,922 Patient denies any vaginal cramping or bleeding at this time 05/28/19 22:44 pt feels much better at this time and will be d/c home imp hyperemesis gravidrum plan 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
--- NOTE | 2019-05-28 20:59 | PDOC ---
History of Present Illness - General Chief Complaint: Nausea/Vomiting Stated Complaint: /VOMITTING/NAUSEA/DIARRHEA Time Seen by Provider: 05/28/19 18:40 History Source: Patient Exam Limitations: No Limitations - History of Present Illness Initial Comments: 05/28/19 20:56 28yF 5 weeks presenting w 2 weeks nausea/vomiting. Unable to keep food/liquids down. Did not take any meds for symptoms. Did not have 1st visit yet, have 1 scheduled 06/07. Denies fever, cough, chest pain, SOB , AB pain, urinary/bowel mvmt changes, vaginal bleeding/discharge. Also complained about 3 months intermittent R paraspinal discomfort and thigh numbness lasting seconds to hours. No symptoms now. Denies trauma/heavy lifting. Past History - Past Medical History Allergies/Adverse Reactions: Allergies Allergy/AdvReac Type Severity Reaction Status Date / Time No Known Allergies Allergy Verified 05/28/19 18:44 Home Medications: Ambulatory Orders Pnv,Calcium 72/Iron/Folic Acid [ Plus Tablet] 1 tab PO DAILY 10/04/16 Ferrous Sulfate [Feosol] 325 mg PO BID #90 tablet 10/13/16 Ibuprofen [Motrin -] 600 mg PO QID #28 tablet 10/13/16 Ondansetron [Zofran *Odt*] 4 mg SL TID #10 od.tablet 05/28/19 Asthma: No Cancer: No Cardiac Disorders: No COPD: No Diabetes: No HTN: No Seizures: No Thyroid Disease: No - Psycho Social/Smoking Cessation Hx Smoking History: Never smoked Have you smoked in the past 12 months: No Hx Alcohol Use: No Drug/Substance Use Hx: No Hx Substance Use Treatment: No Review of Systems - Review of Systems Constitutional: No: Chills, Fever HEENTM: No: Eye Pain, Nose Pain, Nose Congestion, Throat Pain, Mouth Pain Respiratory: No: Cough, Shortness of Breath Cardiac (ROS): No: Chest Pain, Palpitations, Syncope ABD/GI: Yes: Nausea, Poor Appetite, Poor Fluid Intake, Vomiting. No: Abdominal Distended, Constipated, Diarrhea : No: Burning, Dysuria, Discharge, Hematuria Musculoskeletal: No: Back Pain, Joint Pain Integumentary: No: Bruising, Flushing, Lesions Neurological: No: Headache, Seizure, Tingling Psychiatric: No: Anxiety, Depression, Stressors Endocrine: No: Excessive Sweating, Flushing, Intolerance to Cold, Intolerance to Heat Hematologic/Lymphatic: No: Anemia, Blood Clots *Physical Exam - Vital Signs Last Vital Signs Temp Pulse Resp BP Pulse Ox 97.5 F L 97 H 16 135/74 99 05/28/19 18:40 05/28/19 18:40 05/28/19 18:40 05/28/19 18:40 05/28/19 18:40 - Physical Exam General Appearance: Yes: Nourished, Appropriately Dressed, Mild Distress HEENT: positive: EOMI, DEMETRIA, Normal Voice, Hearing Grossly Normal. negative: Scleral Icterus (R), Scleral Icterus (L), Nasal Congestion, Rhinorrhea Respiratory/Chest: positive: Lungs Clear, Normal Breath Sounds. negative: Chest Tender, Respiratory Distress, Crackles, Rales, Rhonchi, Stridor, Wheezing Cardiovascular: positive: Regular Rhythm, Regular Rate, S1, S2. negative: Edema , Murmur Gastrointestinal/Abdominal: positive: Normal Bowel Sounds, Flat, Soft. 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 negative: Responsive, Sensory Deficit, Confused, Disoriented ED Treatment Course - LABORATORY CBC & Chemistry Diagram: 05/28/19 21:04 05/28/19 21:04 Medical Decision Making - Medical Decision Making 05/28/19 20:58 28yF 5 weeks presenting w 2 weeks nausea/vomiting and 3 months intermittent R paraspinal discomfort and thigh numbness Has hyperemesis gravidarum R leg symptoms likely MSK strain vs radiculopathy. Low concern for spinal stenosis (neg straight leg raise) vs cauda equina (retained bowel/bladder function). [facility] [place] [id number] Given 1L NS, zofran. DC home w PCP, OBGYN f/u, zofran prescription Discharge - Discharge Information Problems reviewed: Yes Clinical Impression/Diagnosis: Hyperemesis gravidarum Condition: Improved Disposition: HOME - Admission No - Additional Discharge Information Prescriptions: Ondansetron [Zofran *Odt*] 4 mg SL TID #10 od.tablet - Follow up/Referral - Patient Discharge Instructions Patient Printed Discharge Instructions: DI for Hyperemesis Gravidarum Additional Instructions: You were seen for vomiting. Your labs did not show anything concerning. You were given medication and fluids. Please follow up with your OBGYN doctor in the next few days. Take the prescribed Zofran if you are vomiting Come back to the ED if you have abdominal pain, vaginal bleeding, or vomiting despite medication. - Post Discharge Activity
[2019-05-28] MEDS ORDERED: ONDANSETRON 4 MG/2 ML VIAL ONE (21:12)
[2019-05-28 21:16] LABS: BASO % 0.3 % (0-2.0); EOS % 1.4 % (0-4.5); HEMATOCRIT 41.9 % (32.4-45.2); HEMOGLOBIN 14.1 GM/dL (10.7-15.3); LYMPH % 20.2 % (8-40); MCH 28.4 pg (25.7-33.7); MCHC 33.5 g/dl (32.0-36.0); MEAN CELL VOLUME 84.8 fl (80-96); MEAN PLT VOLUME 8.7 fl (7.5-11.1); MONO % 5.8 % (3.8-10.2); NEUT % 72.3 % (42.8-82.8); PLATELET COUNT 309 K/MM3 (134-434); RBC 4.95 M/mm3 (3.60-5.2); RDW 13.4 % (11.6-15.6); WHITE BLOOD COUNT 11.2 K/mm3 (4.0-10.0)
[2019-05-28 21:29] LABS: INR 1.06 (0.83-1.09); PROTHROMBIN TIME (PATIENT) 12.5 SEC (9.7-13.0)
[2019-05-28 21:54] LABS: ALBUMIN 3.9 g/dl (3.4-5.0); BILIRUBIN,TOTAL 0.6 mg/dL (0.2-1); BLOOD UREA NITROGEN 9.2 mg/dL (7-18); CALCIUM 9.4 mg/dL (8.5-10.1); CREATININE 0.5 mg/dL (0.55-1.3); POTASSIUM 3.9 mmol/L (3.5-5.1); TOT PROT 7.5 g/dl (6.4-8.2)
[2019-05-28 22:37] LABS: PH,URINE 5.5 (5.0-8.0); URINE APPEARANCE CLOUDY; URINE BILIRUBIN NEGATIVE (NEGATIVE); URINE COLOR DK YELLOW; URINE GLUCOSE (UA) NEGATIVE (NEGATIVE); URINE KETONE 3+ (NEGATIVE); URINE LEUK ESTERASE NEGATIVE (NEGATIVE); URINE NITRITE NEGATIVE (NEGATIVE); URINE PROTEIN NEGATIVE (NEGATIVE)
[2019-05-28 23:30] VITALS: BP 126/78; PULSE 88; TEMP 98.6
== END 2019-05-28 23:30 | disposition home or self-care (01) ==
LOC: JER 18:21
PROC: 3E033GC Introduction of Other Therapeutic Substance into Peripheral Vein, Percutaneous Approach (ICD-10-PCS; principal; 2019-05-28)
DX: R20.0 Anesthesia of skin (principal); O26.891 Other specified pregnancy related conditions, first trimester; O21.0 Mild hyperemesis gravidarum; Z3A.01 Less than 8 weeks gestation of pregnancy
CPT/HCPCS: 36415; 80053; 81003; 84702; 85025; 85610; 86850; 86900; 86901; 87086; 99283-25; J7030